=== PATIENT | female | born 1980 | race Caucasian/White ===

== ENCOUNTER → 2019-01-22 | Outpatient (CLI) | payer OTHER ==
[~2019-01-22] MED LIST: B12INJ IM; HUMIRA40 MG/0.1; NORVASC5 MG PO
[2019-01-22 16:13] LABS: CREATININE 0.8 mg/dL (0.6-1.0)
== END ==
LOC: LAB 15:47
PROVIDERS: Family Medicine
DX: D68.59 Other primary thrombophilia (principal); R06.02 Shortness of breath; Z88.1 Allergy status to other antibiotic agents; Z88.0 Allergy status to penicillin; Z88.5 Allergy status to narcotic agent; Z88.8 Allergy status to other drugs, medicaments and biological substances; Z91.013 Allergy to seafood; Z88.2 Allergy status to sulfonamides

== ENCOUNTER 2019-01-23 16:50 | Emergency (ER) | payer OTHER ==
[~2019-01-23] VITALS: Ht 165.1 cm; Wt 89.4 kg
[2019-01-23 17:10] LABS: ABSOLUTE NEUTROPHILS 7.9 thou/uL (1.4-8.2); BASOPHILS 0.8 % (0.0-2.0); EOSINOPHILS 0.6 % (0.0-3.0); HEMATOCRIT 47.1 % (37.0-47.0); HEMOGLOBIN 16.4 gm/dL (12.0-15.0); LYMPHOCYTES 25.4 % (24.0-44.0); MCH 30.5 pg (26.0-34.0); MCHC 34.8 g/dL (28.0-37.0); MCV 87.6 fL (80.0-100.0); MONOCYTES 6.3 % (1.0-8.0); PLATELET COUNT 274 thou/uL (150-400); POLYS 66.9 % (36.0-66.0); RBC 5.38 mil/uL (4.20-5.00); RDW 13.2 % (10.5-14.5); WBC 11.8 thou/uL (4.0-11.0)
[2019-01-23 17:17] LABS: ANION GAP 12 mmol/L (7-16); BUN 10 mg/dL (7-18); CALCIUM 10.3 mg/dL (8.5-10.1); CHLORIDE 100 mmol/L (98-107); CO2 25 mmol/L (21-32); CREATININE 0.7 mg/dL (0.6-1.0); GLUCOSE 105 mg/dL (74-106); POTASSIUM 3.6 mmol/L (3.5-5.1); SODIUM 137 mmol/L (136-145)
[2019-01-23 17:27] LABS: ALBUMIN 4.4 g/dL (3.4-5.0); SGOT 22 U/L (15-37); SGPT 36 U/L (30-65); TOTAL BILIRUBIN 0.5 mg/dL (<0.1-1.0); TOTAL PROTEIN 8.2 g/dL (6.4-8.2); TROPONIN-I <0.06 ng/mL (<0.06)
[2019-01-23 17:36] LABS: APTT 27.3 Seconds (24.5-32.8)
[2019-01-23] MEDS ORDERED: HUMIRA40 MG/0.1 (17:54)
[2019-01-23] MEDS ORDERED: B12INJ IM (17:55)
[2019-01-23] MEDS ORDERED: NORVASC5 MG PO (17:55)
[2019-01-23 19:47] VITALS: BP 151/97
--- NOTE | 2019-01-25 09:27 | EKG ---
[place] [address] [facility] [place] [address] ELECTROCARDIOGRAM REPORT Name: JAMES HEARD [id number] ������������������ Admission: 01/23/19 ������������������ Attend Phys: Discharge: 01/23/19 ������������������ Date of : 78 Report #: [id number] ����������������������������������������������������������������� [id number] THIS REPORT FOR: //name// [facility] ED Test Date: 2019-01-23 Test Time: 16:57:36 Pat Name: JAMES HEARD Department: Room: Gender: F Acquisitions Assistant: zoey : 1980 Requested By: Elly Bar Order Number: [id number] MD: Orion Olivier Measurements Intervals [place] Rate: 66 P: 34 OR: 131 QRS: 43 QRSD: 102 T: 13 QT: 409 QTc: 429 Interpretive Statements Sinus rhythm Atrial premature complex Nonspecific ST and T wave abnormality No previous ECG available for comparison Electronically Signed On 01-25-2019 9:27:25 CDT by Orion Olivier [email or web address] ��������������������������������������������� <ELECTRONICALLY SIGNED> ���������������������������������������� By: Orion Olivier MD, [facility] ��������������������������������������������� 01/25/19 0927 1657 1657 Orion Olivier MD, FACC /EPI
== END 2019-01-23 19:52 | disposition home or self-care (01) ==
LOC: ER 16:50
PROVIDERS: Emergency Medicine; Physician Assistant
DX: R00.2 Palpitations (principal); M79.652 Pain in left thigh; R06.02 Shortness of breath; R10.13 Epigastric pain; Z88.1 Allergy status to other antibiotic agents; Z88.5 Allergy status to narcotic agent; Z88.8 Allergy status to other drugs, medicaments and biological substances; Z86.718 Personal history of other venous thrombosis and embolism

== ENCOUNTER → 2019-09-10 | Outpatient (CLI) | payer OTHER | LOC: CAT 16:07 | DX: Z13.6 Encounter for screening for cardiovascular disorders (principal); I25.10 Atherosclerotic heart disease of native coronary artery without angina pectoris; E78.00 Pure hypercholesterolemia, unspecified ==

== ENCOUNTER → 2020-03-13 | Outpatient (CLI) | payer OTHER | LOC: SJCVCIMAG 15:00 | PROVIDERS: ATTEND Internal Medicine Cardiovascular Disease | DX: E04.1 Nontoxic single thyroid nodule (principal) ==